=== PATIENT | female | born 2000 | race Caucasian/White ===

== ENCOUNTER 2025-10-28 14:42 | Emergency (ER) | payer MEDICAID, SELFPAY ==
[2025-10-28 14:46] VITALS: BP 128/77; PULSE 94; TEMP 36.3; O2SAT 98
--- NOTE | 2025-10-28 14:59 | XRR_ITS ---
PROCEDURE INFORMATION: Exam: XR Lumbosacral Spine Exam date and time: 10/28/2025 4:09 PM Age: 25 years old Clinical indication: Low back pain; Additional Info: LOWER BACK/TAILBONE PAIN AFTER FALL LAST NIGHT TECHNIQUE: Imaging protocol: Radiologic exam of the lumbosacral spine. Views: 2 or 3 views. COMPARISON: CR XR pelvis 1-2V* [id number] 10/28/2025 4:09 PM FINDINGS: Bones/joints: 5 nonrib-bearing lumbar vertebrae. Vertebral bodies are normal in height and bone density. Vertebral bodies are normal in alignment. There is no evidence of fracture or subluxation. Vertebral posterior elements are unremarkable. Disc space height is normal Soft tissues: Visualized portions of the abdominal soft tissues are normal. XR/XR lumbar spine 2-3V* [id number] IMPRESSION: Negative exam.
--- NOTE | 2025-10-28 14:59 | XRR_ITS ---
PROCEDURE INFORMATION: Exam: XR Pelvis Exam date and time: 10/28/2025 4:09 PM Age: 25 years old Clinical indication: Pelvic pain; Additional Info: LOWER BACK/TAILBONE PAIN AFTER FALL LAST NIGHT TECHNIQUE: Imaging protocol: Radiologic exam of the pelvis. Views: 1 or 2 view. COMPARISON: CR XR lumbar spine 2-3V* [id number] 10/28/2025 4:09 PM FINDINGS: Bones/joints: Osseous structures of the bony pelvis including the sacrum, iliac and ischial bones are intact. Osseous structures of the hips including the femoral head, neck and acetabular regions are intact. No significant arthritic changes. Soft tissues: Soft tissues demonstrate no abnormal air or foreign body. XR/XR pelvis 1-2V* [id number] IMPRESSION: Negative pelvis.
--- NOTE | 2025-10-28 15:58 | XRR_ITS ---
PROCEDURE INFORMATION: Exam: XR Sacrum and Coccyx, 2 or More Views Exam date and time: 10/28/2025 4:18 PM Age: 25 years old Clinical indication: Pain in coccyx area; Additional Info: LOWER BACK/TAILBONE PAIN AFTER FALL LAST NIGHT TECHNIQUE: Imaging protocol: XR of the sacrum and coccyx, 2 or more views. COMPARISON: 1. CR XR lumbar spine 2-3V* [id number] 10/28/2025 4:09 PM 2. CR XR pelvis 1-2V* [id number] 10/28/2025 4:09 PM FINDINGS: Bones/joints: Normal. No acute fracture. Soft tissues: Normal. XR/XR sacrum coccyx min 2V [id number] IMPRESSION: No acute findings.
--- NOTE | 2025-10-28 15:59 | ED_ITS ---
HPI - Extremity Problem General: Chief complaint: Extremity Injury, Lower Stated complaint: lower tim k pain, bilat hip pain Time Seen by Provider: 10/28/25 15:50 Source: patient Mode of arrival: ambulatory Limitations: no limitations History of Present Illness: 25-year-old female who states that 6 she had slipped and fell yesterday at work. States she landed on her buttocks and has been having some tailbone pain along with vital hip pain low back pain since the event. States pain sharp in nature rates it a 5 out of 10 that is worse with palpation she is able to ambulate without any difficulties denies any other injuries denies hitting her head. Related Data Previous Rx's ?Medication ?Instructions ?Recorded hydrocodone 5 mg-acetaminophen 325 1 tab PO Q8H PRN pa in #14 tabs 10/28/25 mg tablet naproxen 500 mg tablet (Naprosyn) 500 mg PO BID PRN pa in #20 tabs 10/28/25 Allergies Allergy/AdvReac Type Severity Reaction Status Date / Time No Known Allergies Allergy Verified 10/28/25 14:53 Review of Systems Musc: Reports: back pain Physical Exam Const: COMMON NORMALS: no acute distress, patient oriented x3 and healthy appearing HENMT: COMMON NORMALS: normocephalic and atraumatic HEAD & SCALP: normocephalic and atraumatic Neck/C-Spine: COMMON NORMALS: full ROM and supple Chest: COMMONS NORMALS: normal inspection of the chest Resp: COMMON NORMALS: normal respiratory effort, No retractions, No use of accessory muscles and clear to auscultation bilaterally AUSCULTATION: clear to auscultation bilaterally Cardio: COMMON NORMALS: regular rate, regular rhythm and No murmurs present (Cardio) RATE: regular rate RHYTHM: regular rhythm Back/Pelvis: OTHER: Tenderness along coccyx along L-spine no obvious deformity Extremity: COMMON NORMALS: normal to inspection and full ROM Neuro: COMMON NORMALS: patient oriented x3, moves all extremities and no focal motor deficits Psych: COMMON NORMALS: mental status grossly normal, Normal thought process present and cooperative THOUGHT PROCESS: Normal thought process present Skin: COMMON NORMALS: no rashes or lesions noted and no wounds GENERAL SKIN EXAM: no rashes or lesions noted Course Vital Signs: Vital signs: Vital Signs Temperature 97.4 F L 10/28/25 14:46 Pulse Rate 87 10/28/25 16:05 Respiratory Rate 18 10/28/25 16:05 Blood Pressure 114/66 10/28/25 16:05 Pulse Oximetry 98 10/28/25 16:05 Oxygen Delivery Me thod Room Air 10/28/25 16:05 MDM - Extremity (Nontraumatic) Medical Decision Making 25-year-old female presents here after a fall differential includes contusion, lumbar fracture, coccyx fracture. I did interpret x-rays myself her lumbar spine pelvis and [place] x-ray shows no definite fractures. Likely a contusion. Will place her on Naprosyn and [place] for pain she is to ice areas she is stable for discharge follow-up PCP return if worsening. Medical Records I reviewed the patient's medical records. Lab Data I reviewed the patient's lab results. Radiology Impressions Lumbar Spine X-Ray 10/28/25 14:59 IMPRESSION: Negative exam. Pelvis X-Ray 10/28/25 14:59 IMPRESSION: Negative pelvis. Sacrum and Coccyx X-Ray 10/28/25 15:58 IMPRESSION: No acute findings. All radiology interpretation(s) finalized by discharge Discharge Plan Discharge Patient Disposition: Home Clinical Impression: Fall Injury of coccyx Qualifiers: Encounter type: initial encounter Qualified Code(s): S39.92XA - Unspecified injury of lower back, initial encounter Condition: Stable Prescriptions: New hydrocodone-acetaminophen 5-325 mg tablet 1 tab PO Q8H PRN (Reason: pain) Qty: 14 0RF naproxen [Naprosyn] 500 mg tablet 500 mg PO BID PRN (Reason: pain) Qty: 20 0RF Discharge Orders: Discharge ED (Routine); Ordered 10/28/25 Ordered By: Imelda Bishop Discharge Diet: Advance as tolerated Discharge Activity: Resume usual activity Patient Instructions: Coccyx Injury (ED), Opioid Safety Print Language: Swedish Coding Level of Care Code ED Elevating Grader Operator for Julio Linder
[2025-10-28] MEDS: HYDROcodone-acetaminophen 5-325 mg Tablet 1 TAB PO (16:00)
[2025-10-28 16:05] VITALS: BP 114/66; PULSE 87; RESP 18; O2SAT 98
== END 2025-10-28 16:48 | disposition home or self-care (01) ==
PROVIDERS: Emergency Provider Emergency Medicine
DX: S39.92XA Unspecified injury of lower back, initial encounter (principal); W01.0XXA Fall on same level from slipping, tripping and stumbling without subsequent striking against object, initial encounter
CPT/HCPCS: 72100; 72170; 72220; 99284; J9999